=== PATIENT | female | born 1955 | race Caucasian/White ===

== ENCOUNTER 2022-03-01 10:05 | Day surgery (SDC) | payer BC, SELFPAY ==
[2022-03-01] MEDS: LACTATED RINGERS 1000 ML 1,000 ML 100 ML IV ×3 (10:30→15:19)
[2022-03-01 10:35] VITALS: BMI 26.9
[2022-03-01 10:39] VITALS: BP 169/97; PULSE 100; RESP 16; TEMP 37; O2SAT 97
[2022-03-01] MEDS: SODIUM CHLORIDE 0.9 % (FLUSH) 10 ML SYRINGE IVF (10:59)
--- NOTE | 2022-03-01 11:00 | SUR.PREOP ---
Visualized pt's neg covid test on her phone.
--- NOTE | 2022-03-01 13:08 | CRLHL7_ITS ---
For Patients: As a result of the Cures Act, medical imaging exams and procedure reports are released immediately into your electronic medical record. You may view this report before your referring provider. If you have questions, please contact your health care provider. Indication: RIGHT INTRA OP MPJ FUSION Technique: Two fluoroscopic images of the right foot. Fluoroscopic time 10.6 seconds. IMPRESSION: Fluoroscopic guidance for 1st MTP fusion and 2nd hammertoe correction. Dictated by Arnaldo Victor MD @ 03/01/2022 4:08:59 PM (Electronically Signed)
[2022-03-01] MEDS: CEFAZOLIN 1 GM inj IVP (13:30)
[2022-03-01] MEDS: BUPIVACAINE 0.5% 30 ML INJECTION (13:49)
--- NOTE | 2022-03-01 15:53 | W.ANESCHARGE ---
Anesthesia Charges Start Date/Time Anesthesia Start Date: 03/01/22 Anesthesia Start Time: 13:26 Stop Date/Time Anesthesia Stop Date: 03/01/22 Anesthesia Stop Time: 16:15 Summary Emergency: No
[2022-03-01 16:13] VITALS: BP 134/98; PULSE 92; RESP 16; O2SAT 98
[2022-03-01 16:15] VITALS: BP 142/94; RESP 16; O2SAT 100
--- NOTE | 2022-03-01 16:18 | W.ANESCHARGE ---
Anesthesia Charges Start Date/Time Anesthesia Start Date: 03/01/22 Anesthesia Start Time: 13:26 Stop Date/Time Anesthesia Stop Date: 03/01/22 Anesthesia Stop Time: 16:15 Summary Emergency: No
[2022-03-01 16:30] VITALS: BP 140/91; RESP 16; O2SAT 100
[2022-03-01 16:45] VITALS: BP 138/91; RESP 16; O2SAT 97
[2022-03-01 17:00] VITALS: BP 148/92; RESP 16; O2SAT 96
--- NOTE | 2022-03-01 17:16 | P.GSOP_ITS ---
Operative Note Date of procedure: 03/01/22 Type of Procedure: 1. First MPJ fusion right 2. Martin osteotomy 2nd right 3. Hammertoe correction 2nd digit right 4. Tailor's bunion correction by osteotomy right Procedure Description: Preoperative diagnosis: 1. Hallux valgus with bunion right 2. Hammertoe 2nd digit right 3. Metatarsalgia 2nd right 4. Tailor's bunion right Postop diagnosis: Same Procedure: 1. First MPJ fusion right 2. Martin osteotomy 2nd right 3. Hammertoe correction 2nd digit right 4. Tailor's bunion correction by osteotomy right After discussing the risks and benefits of the procedure, the patient signed in formed consent.? The operative site was marked and the patient was brought to the operating room and placed on the operating table in supine position.? Care was taken to pad the patient's pressure points.?? The patient was then given sedation by anesthesia and I injected 30 mL of 0.5% Marcaine plain into the right foot.?? The operative site was then prepped and draped in the usual sterile fashion.? A time-out was then performed. The right foot was exsanguinated and the ankle tourniquet inflated to 250 mm Hg. Linear incisions made over the 1st metatarsophalangeal joint. The incision was carried down through skin subcutaneous tissues. A linear periosteal capsular incision was made and the tissues reflected away from the 1st metatarsal head and proximal phalangeal base. A guide pin was placed in the 1st metatarsal head and a 18 mm Reamer was used to remove the cartilage and subchondral bone. A rongeur was used to remove additional bony lipping from the metatarsal head. Guide pin was removed and placed in the base of the proximal phalanx. Corresponding 18 mm Reamer was used to remove the cartilage and subchondral bone. Guide pin was removed. We thoroughly irrigated normal sterile saline. The opposing joint fusion surfaces were fenestrated with a K-wire. And instrument tray lid simulated weight-bearing and the hallux was aligned in the optimal position and temporally fixated with a K-wire. C-arm confirmed position. Guide pin was then placed from distal medial to proximal lateral and a 3.0 cannulated at this screw inserted. Excellent compression noted across the fusion site. A dorsal locking plate was then applied. Three 3.0 mm locking screws were placed distally and 1 locking screw placed proximal. An additional 3.0 nonlocking screw placed proximal. First metatarsal head was then remodeled using a rotary bur. C-arm confirmed excellent position. Wound was thoroughly irrigated normal sterile saline. Joint capsule was reapproximated with 3-0 Vicryl and subcutaneous tissues reapproximated with 4-0 Monocryl and skin closed with 4-0 Prolene. Linear incisions made over the 2nd metatarsophalangeal joint and the incision extended out over the proximal interphalangeal joint. Incision was deepened down through skin subcutaneous tissues. Transverse incision was made through the extensor tendons at the level of the MPJ and the joint capsule was also r eleased. Medial lateral joint capsule were also released. Sagittal saw was then used to create a Martin osteotomy. A 2nd cut was placed removing a 1 mm wedge of bone to further elevate 2nd metatarsal. Capital fragments transposed proximally 2 mm and fixated with a 2.0 twist off screw. Osteotomy felt quite stable. Bony overhang of the 2nd metatarsal was removed with a rongeur. Transverse incision was made through the extensor tendon and joint capsule at the PIPJ. The mediolateral collateral ligaments were released and extensor tendon reflected proximally. Sagittal saw was used to resect the head of the proximal phalanx and base of the middle phalanx. The flexor digitorum longus tendon was identified and released distally was then split in 2 equal halves with 1/2 brought medial the other lateral under the proximal phalanx. A 0.054 smooth K-wire was introduced in the base of the middle phalanx driven out through the tip of the toe. Fusion site was then aligned and the K-wire int roduced retrogradely into the proximal phalanx. C-arm confirmed position. Second toe continue to dorsally dislocate. The flexor tendon strips 1 medial and lateral or brought over the top of the proximal phalanx and tied in a knot. This was reinforced with 2-0 FiberWire. Once this was done this held the toe in a rectus position and no longer dislocated at the MPJ. Additional 2-0 FiberWire was used to reef and tightened the lateral joint capsule to help keep the toe from drifting medially. This worked quite well to hold the toe in alignment. Wound was thoroughly irrigated normal sterile saline the distal extensor tendon over the PIPJ fusion was repaired with 4-0 Vicryl. The joint capsule at the MPJ was not repaired. Subcutaneous tissues reapproximated with 4-0 Monocryl and the skin closed with 4-0 Prolene. K-wire was bent cut and capped. Linear incisions made over the dorsal lateral aspect of the 5th metatarsal head and distal 5th metatarsal shaft. Incision was carried down through skin subcutaneous tissues. A linear capsular and periosteal incision was made and the structures reflected away from the 5th metatarsal head. Sagittal saw was used to remove the excess bone from the lateral aspect of the 5th metatarsal head. A guide pin was then placed in the metatarsal head to be used an osteotomy axis. He has an osteotomy guide sagittal saw was used to create a long plantar arm osteotomy. Guide pin was removed and the capital fragment was transposed medially. Once adequate correction was obtained it was then fixated with two 2.0 cannulated screws. C-arm confirmed excellent correction. The 5th metatarsal head was remodeled with a sagittal saw and rotary bur. Wound was then thoroughly irrigated normal sterile saline. Tourniquet was released. The capsular tissues repaired with 4-0 Vicryl. Subcutaneous tissues reapproximated 4-0 Monocryl and skin closed with 4-0 Prolene. Sterile dressings were then applied. Well-padded CAM boot was placed. The patient was then woken and transported to the recovery area in stable condition. ? The patient tolerated the procedure well. Written and verbal postop instructions given. She is given oxycodone for pain. She is weight-bearing to the heel in Cam boot with crutch or walker assistance. To follow-up in 2 days. Findings: Complications: None apparent Implants: Ar[employer] 1st MPJ fusion plate x1, 3.0 locking screws times 4, 3.0 nonlocking screw x1, 3.0 cannulated headless screw x1, twist off screw x1, 2.0 cannulated screw x2, 0.054 smooth K-wire x1 Anesthesia: MAC and local Surgeon: Yair Alex DPM Estimated blood loss (mL): 10 Condition: stable Disposition: floor
--- NOTE | 2022-03-01 17:19 | PC.NURSE ---
Clarified with Dr. Alex, prescription had been sent for Oxycodone through [facility]. Also advised patient to use Tylenol 1000mg Q6H as needed and Ibuprofen 600mg Q6H as needed for pain per MD. Patient has follow up scheduled already.
--- NOTE | 2022-03-01 18:24 | PC.NURSE ---
PATIENT TO FLOOR AROUND 1600 VIA CART, DROWSY BUT ALERT AND ORIENTED, CAM BOOT TO RIGHT LOWER EXTREMITY WITH DRESSING, UNABLE TO ASSESS SITE DUE TO CAM BOOT AND DRESSING, PATIENT REPORTING NUMBNESS AT SITE, DECLINING PAIN, TOLERATING ICE CHIPS AND FLUIDS INITIALLY NO NAUSEA AND LATER TOLERATING CRACKER NO NAUSEA, IV SALINE LOCKED WHEN TOLERATING PO INTAKE, UP TO BATHROOM MINIMAL ASSIST WITH HEEL TOUCH TO RIGHT LOWER EXTREMITY, ABLE TO VOID, IV DC'D CATHETER INTACT, FAMILY MEMBER YOU AT BEDSIDE AND SUPPORTIVE, PATIENT AND FAMILY MEMBER VERBALIZED UNDERSTANDING OF DISCHARGE INFORMATION AND HAD NO FURTHER QUESTIONS AT THIS TIME, LEFT VIA WHEELCHAIR AROUND 1800.
== END 2022-03-01 18:00 | disposition home or self-care (01) ==
LOC: OR 10:06 → MEDSURG 16:43
PROVIDERS: PCP Family Medicine; Visit Provider Podiatrist
PROC: (CPT 28740; principal; 2022-03-01 11:30)
PROC: (CPT 28285; 2022-03-01 11:30)
PROC: (CPT 28292; 2022-03-01 11:30)
DX: M20.11 Hallux valgus (acquired), right foot (principal); M20.41 Other hammer toe(s) (acquired), right foot; M21.611 Bunion of right foot; M77.41 Metatarsalgia, right foot; M21.621 Bunionette of right foot
CPT/HCPCS: 28750; 28308; 28285; 28110; 01480; 73620; 76000; C1713; J0690; J1100; J1885; J2250; J2405; J2704; J3010; J3490; J7120